=== PATIENT | male | born 2000 | race Caucasian/White ===

== ENCOUNTER 2020-10-13 19:27 | Emergency (ER) | payer OTHER ==
[2020-10-13] MEDS ORDERED: SODIUM CHLORIDE 0.9% 500 ML 500 ML IV STA (19:57)
[2020-10-13 20:14] LABS: Basophils % (A) 0 %; Eosinophils # (A) 0.1 k/uL (0-0.7); Eosinophils % (A) 1 %; HCT 42.6 % (39.0-53.0); HGB 15.8 gm/dL (13.0-17.5); Hyperchromasia Moderate; Lymphocytes # (A) 2.3 k/uL (1.0-4.8); Lymphocytes % (A) 23 %; MCH 29.6 pg (25.0-35.0); MCHC 37.2 g/dL (31.0-37.0); MCV 79.5 fL (80.0-100.0); Mean Platelet Volume 7.9; Monocytes # (A) 0.5 k/uL (0-1.0); Monocytes % (A) 5 %; Neutrophils # (A) 6.6 k/uL (1.3-7.7); Neutrophils % (A) 68 %; Platelet Count 296 k/uL (150-450); RBC 5.36 m/uL (4.30-5.90); WBC 9.7 k/uL (3.8-10.6)
[2020-10-13 20:28] LABS: Partial Thromboplastin Time 22.6 sec (22.0-30.0); Prothrombin Time 10.6 sec (9.0-12.0)
[2020-10-13 20:30] LABS: ALT 21 U/L (4-49); AST 27 U/L (17-59); African American GFR (CKD) >90 (>60 ml/min/1.73 sqM); Albumin 4.9 g/dL (3.5-5.0); Alkaline Phosphatase 94 U/L (38-126); Anion Gap 14 mmol/L; Blood Urea Nitrogen 10 mg/dL (9-20); Carbon Dioxide 15 mmol/L (22-30); Chloride 112 mmol/L (98-107); Glucose 101 mg/dL (74-99); Lipase 155 U/L (23-300); Non-African American GFR(CKD) >90 (>60 ml/min/1.73 sqM); Potassium 3.2 mmol/L (3.5-5.1); Sodium 141 mmol/L (137-145); Total Bilirubin 1.3 mg/dL (0.2-1.3); Total Protein 8.1 g/dL (6.3-8.2)
[2020-10-13 20:33] LABS: D-Dimer <0.17 mg/L FEU (<0.60)
--- NOTE | 2020-10-13 20:49 | XR ---
EXAMINATION TYPE: XR chest 2V DATE OF EXAM: 10/13/2020 COMPARISON: NONE HISTORY: Chest pain TECHNIQUE: 2 views FINDINGS: Heart and mediastinum are normal. Lungs are clear. Diaphragm is normal. Bony thorax is inta ct there are chest leads. IMPRESSION: Normal chest.
--- NOTE | 2020-10-13 21:37 | ED ---
SOB HPI - General Chief Complaint: Shortness of Breath Stated Complaint: SOB Time Seen by Provider: 10/13/20 19:48 Source: patient Mode of arrival: ambulatory Limitations: no limitations - History of Present Illness Initial Comments: Nemesio is a 20 yo M with PMH of asthma, cigarette smoker, who presents to the ER today for re-evaluation of shortness of breath. Patient has been seen at least 2 other times earlier this week. He had a thorough workup including labs, COVID testing, CT pulmonary embolism study. All workup has been negative. Patient states that he just feels like if he doesn't focus on his breathing he will stop breathing. States that he got very nervous about this and asked his mom to bring him to the hospital. While on this with the hospital he felt like there is tightness in his throat. Patient states that he does have a smoker's cough and is developed some sharp pain in his right lateral chest that he believes is a rib out of place from coughing. - Related Data Home Medications Medication Instructions Recorded Confirmed Albuterol Nebulized [Ventolin 2.5 mg INHALATION RT-QID PRN 10/13/20 10/13/20 Nebulized] Albuterol Sulfate [Proair Hfa] 2 puff INHALATION RT-Q6H PRN 10/13/20 10/13/20 Allergies Allergy/AdvReac Type Severity Reaction Status Date / Time No Known Allergies Allergy Verified 10/13/20 20:54 Review of Systems ROS Statement: Those systems with pertinent positive or pertinent negative responses have been documented in the HPI. ROS Other: All systems not noted in ROS Statement are negative. Past Medical History Past Medical History: Asthma History of Any Multi-Drug Resistant Organisms: None Reported Past Surgical History: No Surgical Hx Reported Past Psychological History: No Psychological Hx Reported Smoking Status: Never smoker Past Alcohol Use History: Occasional Past Drug Use History: Marijuana General Exam - General Exam Comments Initial Comments: Physical Exam GENERAL: Patient is well-developed and well-nourished. Patient is nontoxic and well- hydrated and is in no distress. HENT: Normocephalic, Atraumatic. EYES: PERRL, EOMI PULMONARY: Unlabored respirations. No audible rales rhonchi or wheezing was noted. CARDIOVASCULAR: There is a regular rate and rhythm without any murmurs gallops or rubs. ABDOMEN: Soft and nontender with normal bowel sounds. SKIN: Skin is clear with no lesions or rashes and otherwise unremarkable. : Deferred NEUROLOGIC: Patient is alert and oriented x3. Moving all extremities spontaneously MUSCULOSKELETAL: Normal extremities with adequate strength and full range of motion. No lower extremity swelling or edema. No calf tenderness. PSYCHIATRIC: Normal psychiatric evaluation. Limitations: no limitations Course Vital Signs 10/13/20 19:33 Temperature 97.3 F L Pulse Rate 110 H Respiratory 20 Rate Blood Pressure 166/99 O2 Sat by Pulse 98 Oximetry Medical Decision Making - Medical Decision Making Patient was seen and evaluated history is obtained from patient Medical records were reviewed patient had records from previous ER visits Repeat labs and chest x-ray were obtained Labs are relatively unremarkable patient is mildly hypokalemic and was advised she can replace this with by mouth intake D-dimer is undetectable troponin is undetectable Results were discussed with patient who again reiterated that he has continued to feel like he is not going to survive and has been feeling like this for 7 or 8 days now. He feels like he has to focus on his breathing or he will stop breathing. I do feel there may be an anxiety component to the patient's symptoms as he has had multiple thorough workups. Patient is agreeable to trying a dose of Xanax. I did advise patient needs follow-up primary care for anxiety and with pulmonology as he does have a history of asthma and is a every day smoker. Encouraged patient to quit smoking. Patient will be discharged home in stable c ondition. - Lab Data Result diagrams: 10/13/20 20:05 10/13/20 20:05 Lab Results 10/13/20 10/13/20 10/13/20 Range/Units 20:05 20:05 20:05 WBC 9.7 (3.8-10.6) k/uL RBC 5.36 (4.30-5.90) m/uL Hgb 15.8 (13.0-17.5) gm/dL Hct 42.6 (39.0-53.0) % MCV 79.5 L (80.0-100.0) fL MCH 29.6 (25.0-35.0) pg MCHC 37.2 H (31.0-37.0) g/dL RDW 13.0 (11.5-15.5) % Plt Count 296 (150-450) k/uL MPV 7.9 Neutrophils % 68 % Lymphocytes % 23 % Monocytes % 5 % Eosinophils % 1 % Basophils % 0 % Neutrophils # 6.6 (1.3-7.7) k/uL Lymphocytes # 2.3 (1.0-4.8) k/uL Monocytes # 0.5 (0-1.0) k/uL Eosinophils # 0.1 (0-0.7) k/uL Basophils # 0.0 (0-0.2) k/uL Hyperchromasia Moderate PT 10.6 (9.0-12.0) sec INR 1.0 (<1.2) APTT 22.6 (22.0-30.0) sec D-Dimer <0.17 (<0.60) mg/L FEU Sodium 141 (137-145) mmol/L Potassium 3.2 L (3.5-5.1) mmol/L Chloride 112 H (98-107) mmol/L Carbon Dioxide 15 L (22-30) mmol/L Anion Gap 14 mmol/L BUN 10 (9-20) mg/dL Creatinine 0.76 (0.66-1.25) mg/dL Est GFR (CKD-EPI)AfAm >90 (>60 ml/min/1.73 sqM) Est GFR (CKD-EPI)NonAf >90 (>60 ml/min/1.73 sqM) Glucose 101 H (74-99) mg/dL Calcium 10.0 (8.4-10.2) mg/dL Magnesium 2.0 (1.6-2.3) mg/dL Total Bilirubin 1.3 (0.2-1.3) mg/dL AST 27 (17-59) U/L ALT 21 (4-49) U/L Alkaline Phosphatase 94 (38-126) U/L Troponin I (0.000-0.034) ng/mL Total Protein 8.1 (6.3-8.2) g/dL Albumin 4.9 (3.5-5.0) g/dL Lipase 155 (23-300) U/L 10/13/20 Range/Units 20:05 WBC (3.8-10.6) k/uL RBC (4.30-5.90) m/uL Hgb (13.0-17.5) gm/dL Hct (39.0-53.0) % MCV (80.0-100.0) fL MCH (25.0-35.0) pg MCHC (31.0-37.0) g/dL RDW (11.5-15.5) % Plt Count (150-450) k/uL MPV Neutrophils % % Lymphocytes % % Monocytes % % Eosinophils % % Basophils % % Neutrophils # (1.3-7.7) k/uL Lymphocytes # (1.0-4.8) k/uL Monocytes # (0-1.0) k/uL Eosinophils # (0-0.7) k/uL Basophils # (0-0.2) k/uL Hyperchromasia PT (9.0-12.0) sec INR (<1.2) APTT (22.0-30.0) sec D-Dimer (<0.60) mg/L FEU Sodium (137-145) mmol/L Potassium (3.5-5.1) mmol/L Chloride (98-107) mmol/L Carbon Dioxide (22-30) mmol/L Anion Gap mmol/L BUN (9-20) mg/dL Creatinine (0.66-1.25) mg/dL Est GFR (CKD-EPI)AfAm (>60 ml/min/1.73 sqM) Est GFR (CKD-EPI)NonAf (>60 ml/min/1.73 sqM) Glucose (74-99) mg/dL Calcium (8.4-10.2) mg/dL Magnesium (1.6-2.3) mg/dL Total Bilirubin (0.2-1.3) mg/dL AST (17-59) U/L ALT (4-49) U/L Alkaline Phosphatase (38-126) U/L Troponin I <0.012 (0.000-0.034) ng/mL Total Protein (6.3-8.2) g/dL Albumin (3.5-5.0) g/dL Lipase (23-300) U/L Disposition Clinical Impression: Cough Disposition: HOME SELF-CARE Condition: Stable Additional Instructions: I recommend you stop smoking cigarettes and marijuana Follow up with Pulmonology Return for any worsening or development of new or concerning symptoms Referrals: None,Stated [Primary Care Provider] - 1-2 days
[2020-10-13] MEDS ORDERED: ALPRAZolam 1 MG TAB PO STA (21:42)
[2020-10-13 22:16] VITALS: BP 139/63; PULSE 80; RESP 18; TEMP 97.2
== END 2020-10-13 22:15 | disposition home or self-care (01) ==
LOC: EC 19:27
DX: J41.0 Simple chronic bronchitis (principal); J45.909 Unspecified asthma, uncomplicated; F17.210 Nicotine dependence, cigarettes, uncomplicated; F12.90 Cannabis use, unspecified, uncomplicated; Z79.51 Long term (current) use of inhaled steroids
CPT/HCPCS: 36415; 71046; 80053; 83690; 83735; 84484; 85025; 85379; 85610; 85730; 93005; 99285

== ENCOUNTER 2020-11-07 16:25 | Emergency (ER) | payer OTHER ==
[2020-11-07 17:41] VITALS: TEMP 98.2
--- NOTE | 2020-11-07 18:07 | XR ---
EXAMINATION TYPE: XR chest 2V DATE OF EXAM: 11/07/2020 COMPARISON: 10/13/2020 INDICATION: Short of breath, history of asthma TECHNIQUE: Chest is examined in frontal and lateral projections. FINDINGS: The heart size is normal. The pulmonary vasculature is normal. There is blunting of the right costophrenic angle. Small posterior pleural effusion may be present. IMPRESSION: 1. Small right pleural effusion. 2. No acute pulmonary process is not otherwise evident.
[2020-11-07] MEDS ORDERED: DEXAMETHASONE SOD PHOSPHATE 10 MG/ML 1 ML VIAL IM STA (19:33)
--- NOTE | 2020-11-07 19:40 | ED ---
URI HPI - General Chief Complaint: Upper Respiratory Infection Stated Complaint: headache, congestion, sore throat Time Seen by Provider: 11/07/20 19:21 Source: patient, family (mom), RN notes reviewed Mode of arrival: ambulatory Limitations: no limitations - History of Present Illness Initial Comments: Well-appearing, well-nourished and anxious 20-year-old male presents to the emergency room with his mom complaining of 3 days of nasal congestion sore throat and cough. Patient denies headaches, fevers, nausea vomiting or diarrhea. Patient has history of asthma, seasonal ALLERGIES which she occasionally takes medication for, recently quit smoking marijuana. Patient has seen his primary care doctor and was prescribed omeprazole to help control asthma and clonidine 0.1 mg for anxiety. Patient states has been trying to expel mucus by trying to clear his throat and has noticed some bleeding in his mucus. Patient denies any other medical history. MD Complaint: cough, sore throat, nasal congestion -: days(s) (3) Quality: other (Sore, tight) Consistency: constant Improves With: other (Albuterol) Worsens With: deep breaths Associated Symptoms: rhinorrhea, nasal congestion, sore throat, cough, shortness of breath Treatments Prior to Arrival: other (Adele-Gardiner, omeprazole) - Related Data Home Medications Medication Instructions Recorded Confirmed Albuterol Nebulized [Ventolin 2.5 mg INHALATION RT-QID PRN 10/13/20 10/13/20 Nebulized] Albuterol Sulfate [Proair Hfa] 2 puff INHALATION RT-Q6H PRN 10/13/20 10/13/20 Previous Rx's Medication Instructions Recorded Azithromycin [Zithromax Z-pack (6 1 mg PO DIRECTED 5 Days #1 pack 11/07/20 tabs)] Allergies Allergy/AdvReac Type Severity Reaction Status Date / Time No Known Allergies Allergy Verified 11/07/20 17:38 Review of Systems ROS Statement: Those systems with pertinent positive or pertinent negative responses have been documented in the HPI. ROS Other: All systems not noted in ROS Statement are negative. Past Medical History Past Medical History: Asthma History of Any Multi-Drug Resistant Organisms: None Reported Past Surgical History: No Surgical Hx Reported Past Psychological History: No Psychological Hx Reported Smoking Status: Never smoker Past Alcohol Use History: Occasional Past Drug Use History: Marijuana General Exam Limitations: no limitations General appearance: alert, in no apparent distress Head exam: Present: atraumatic, normocephalic, normal inspection Eye exam: Present: normal appearance, PERRL, EOMI. Absent: scleral icterus, conjunctival injection, periorbital swelling Pupils: Present: normal accommodation ENT exam: Present: normal exam (Erythematous oropharynx, no exudates), mucous membranes moist Neck exam: Present: normal inspection, full ROM. Absent: tenderness, meningismu s, lymphadenopathy, thyromegaly Respiratory exam: Present: normal lung sounds bilaterally. Absent: respiratory distress, wheezes, rales, rhonchi, stridor, chest wall tenderness, accessory muscle use, decreased breath sounds Cardiovascular Exam: Present: tachycardia, normal heart sounds. Absent: clicks GI/Abdominal exam: Present: soft, normal bowel sounds. Absent: distended, tenderness, guarding, rebound, rigid Rectal exam: Present: deferred Extremities exam: Present: normal inspection, full ROM, normal capillary refill. Absent: tenderness, pedal edema, joint swelling, calf tenderness Back exam: Present: normal inspection, full ROM. Absent: tenderness, CVA tenderness (R), CVA tenderness (L), muscle spasm, paraspinal tenderness, vertebral tenderness Neurological exam: Present: alert, oriented X3, CN II-XII intact. Absent: motor sensory deficit Psychiatric exam: Present: normal affect, anxious Skin exam: Present: warm, dry, intact, normal color. Absent: rash Course Vital Signs 11/07/20 11/07/20 17:38 20:20 Temperature 98.2 F Pulse Rate 105 H 88 Respiratory 16 18 Rate Blood Pressure 144/93 136/89 O2 Sat by Pulse 100 98 Oximetry Medical Decision Making - Medical Decision Making Patient is afebrile, covid test negative, strep test is negative, chest x-ray shows right pleural effusion, lung sounds are clear with no wheezes. Patient will be treated with a Z-Robert and directed to follow up with primary care doctor in 1 week. Continue use of his prescribed albuterol as needed for wheezing. Case discussed with Dr. Quispe. - Lab Data Lab Results 11/07/20 11/07/20 Range/Units 17:41 19:52 Coronavirus (PCR) Not Detected (Not Detectd) Group A Strep Rapid Negative (Negative) Disposition Clinical Impression: Pneumonia Disposition: HOME SELF-CARE Condition: Good Instructions (If sedation given, give patient instructions): Upper Respiratory Infection (ED) Additional Instructions: Take medication as prescribed, continue using your albuterol inhaler as needed for wheezing. Follow-up with the primary care doctor in 1 week. Prescriptions: Azithromycin [Zithromax Z-pack (6 tabs)] 1 mg PO DIRECTED 5 Days #1 pack Is patient prescribed a controlled substance at d/c from ED?: No Referrals: [facility] [Primary Care Provider] - 1-2 days Time of Disposition: 19:56
[2020-11-07 20:21] VITALS: BP 136/89; PULSE 88; RESP 18
== END 2020-11-07 20:45 | disposition home or self-care (01) ==
LOC: EC 16:25
DX: J18.9 Pneumonia, unspecified organism (principal); J45.909 Unspecified asthma, uncomplicated; F12.90 Cannabis use, unspecified, uncomplicated
CPT/HCPCS: 87081; 87430; 87635; 71046; 99283; 96372; J1100

== ENCOUNTER 2020-11-13 00:28 | Emergency (ER) | payer OTHER ==
[2020-11-13] MEDS ORDERED: LORazepam 1 MG TAB PO STA (01:15)
--- NOTE | 2020-11-13 01:30 | ED ---
SOB HPI - General Chief Complaint: Shortness of Breath Stated Complaint: SOB Time Seen by Provider: 11/13/20 01:04 Source: patient, family Mode of arrival: ambulatory Limitations: no limitations - History of Present Illness Initial Comments: 20 year-old male patient presents to the emergency department for evaluation of shortness of breath that has been going on for the last few weeks. Was evaluated in the ER five days ago and started on a z-pack for pneumonia. Patient states that he completed the antibiotic and he is not feeling any better. He denies any cough or congestion. Denies any current sore throat or fevers. States that he feels like his breathing is constricted and it's hard to take a deep breath. States he occasionally gets some pain in the left upper chest. Denies history of blood clots. Does have a history of asthma that he did do a breathing treatment prior to arrival did not help. Patient denies any recent rash, abdominal pain, nausea, vomiting, diarrhea, constipation, back pain, numbness, tingling, dizziness, weakness, hematuria, dysuria, urinary urgency, urinary frequency, headache, visual changes, or any other complaints. - Related Data Home Medications Medication Instructions Recorded Confirmed Albuterol Nebulized [Ventolin 2.5 mg INHALATION RT-QID PRN 10/13/20 10/13/20 Nebulized] Albuterol Sulfate [Proair Hfa] 2 puff INHALATION RT-Q6H PRN 10/13/20 10/13/20 Previous Rx's Medication Instructions Recorded Azithromycin [Zithromax Z-pack (6 1 mg PO DIRECTED 5 Days #1 pack 11/07/20 tabs)] Allergies Allergy/AdvReac Type Severity Reaction Status Date / Time No Known Allergies Allergy Verified 11/13/20 00:39 Review of Systems ROS Statement: Those systems with pertinent positive or pertinent negative responses have been documented in the HPI. ROS Other: All systems not noted in ROS Statement are negative. Past Medical History Past Medical History: Asthma History of Any Multi-Drug Resistant Organisms: None Reported Past Surgical History: No Surgical Hx Reported Past Psychological History: No Psychological Hx Reported Smoking Status: Never smoker Past Alcohol Use History: Occasional Past Drug Use History: Marijuana General Exam Limitations: no limitations General appearance: alert, in no apparent distress, other (Social well- developed, well-nourished, anxious adult male patient in no acute distress. Vital signs upon presentation are temperature 98.3F, pulse 112, respirations 22, blood pressure 162/108, pulse ox 99% on room air.) Eye exam: Present: normal appearance, PERRL, EOMI. Absent: scleral icterus, conjunctival injection, periorbital swelling ENT exam: Present: normal exam, normal oropharynx, mucous membranes moist Respiratory exam: Present: normal lung sounds bilaterally, other (Pursed lip breathing). Absent: respiratory distress, wheezes, rales, rhonchi, stridor Cardiovascular Exam: Present: regular rate, normal rhythm, normal heart sounds. Absent: systolic murmur, diastolic murmur, rubs, gallop, clicks GI/Abdominal exam: Present: soft, normal bowel sounds. Absent: distended, tenderness, guarding, rebound, rigid Neurological exam: Present: alert, oriented X3, CN II-XII intact Psychiatric exam: Present: normal affect, normal mood Skin exam: Present: warm, dry, intact, normal color. Absent: rash Course Vital Signs 11/13/20 00:35 Temperature 98.3 F Pulse Rate 112 H Respiratory 22 Rate Blood Pressure 162/108 O2 Sat by Pulse 99 Oximetry Medical Decision Making - Medical Decision Making 20 year-old male patient presents for shortness of breath that has been going on for weeks. Physical examination is unremarkable. Lungs clear to auscultation. He is taking forced deep breaths. Is able to speak full sentences. Oxygen saturation is 99% on room air. EKG showed normal sinus without ST changes or ectopy. Chest Xray is clear. I did discuss findings with him. He is discharged follow-up with his primary care physician for recheck in 1-2 days. Return parameters were discussed in detail. He verbalizes understanding and agrees with this plan. Case discussed with my attending Dr. Howard. - EKG Data -: EKG Interpreted by Me EKG Comments: EKG obtained at 50 shows normal sinus rhythm with a ventricular rate of 88, ME interval 152, QRS duration 72, QT 368, QTC 445. No evidence of ST elevation or depression. - Radiology Data Radiology results: report reviewed, image reviewed Two-view x-ray of the chest is obtained. Report was reviewed in its entirety. Impression by Dr. Adams shows no acute cardio pulmonary process or significant alteration from the previous examination. Disposition Clinical Impression: Shortness of breath Disposition: HOME SELF-CARE Condition: Good Instructions (If sedation given, give patient instructions): Shortness of Breath (ED) Additional Instructions: Follow-up with her primary care physician for further evaluation as soon as possible. Return for any new, worsening, or concerning symptoms Is patient prescribed a controlled substance at d/c from ED?: No Referrals: [facility] [Primary Care Provider] - 1-2 days Time of Disposition: 02:32
--- NOTE | 2020-11-13 02:31 | XR ---
EXAM: XR Chest, 2 Views CLINICAL HISTORY: ITS.REASON XR Reason: Shortness of breath TECHNIQUE: Frontal and lateral views of the chest. COMPARISON: 11/07/2020 FINDINGS: Lungs: No focal consolidation. The pulmonary vasculature demonstrates no significant radiographic abnormality. Pleural space: Unremarkable. No pneumothorax. No large pleural effusion. Heart: Unremarkable. No cardiomegaly. Mediastinum: Unremarkable. No significant abnormality identified. The trachea is midline. Bones/joints: Unremarkable. IMPRESSION: No acute cardiopulmonary process or significant alteration from the previous examination.
[2020-11-13 02:52] VITALS: BP 160/109; PULSE 96; RESP 20; TEMP 98.5
== END 2020-11-13 02:50 | disposition home or self-care (01) ==
LOC: EC 00:28
DX: R06.02 Shortness of breath (principal); J45.909 Unspecified asthma, uncomplicated
CPT/HCPCS: 71046; 93005; 99285